=== PATIENT | male | born 1970 | race Two or more races ===

== ENCOUNTER 2023-06-01 15:58 | Outpatient (OUT) | payer OTHER, SELFPAY ==
--- NOTE | 2023-06-01 | XR_ITS ---
The [address] [address] Patient Name: SHARAN TOBIN MRN: [id number] date: 1970 Sex: M Assigned Patient Location: [facility] Current Patient Location: [facility] Accession/Order Number: [id number] Exam Date: 06/01/2023 16:00 Report Date: 06/03/2023 09:32 At the request of: ROCAEL VEGA Procedure: XR chest 2V EXAMINATION: XR chest 2V HISTORY: URI CONTINUOUS COUGH , shortness of breath COMPARISON: No relevant comparison available. FINDINGS: LUNGS: No significant pulmonary parenchymal abnormalities. VASCULATURE: No increased pulmonary vasculature. PLEURA: No pneumothorax, effusion, or pleural thickening. CARDIAC: No cardiomegaly or cardiac silhouette abnormality. MEDIASTINUM: No visible mass or adenopathy. BONES: No fracture or visible bone lesion. OTHER: Negative. XR/XR chest 2V IMPRESSION: 1. No acute cardiopulmonary process. Electronically authenticated by: REHAN العلي Date: 06/03/2023 09:32
== END 2023-06-01 15:59 | disposition home or self-care (01) ==
LOC: RAD 16:04
PROVIDERS: PCP Internal Medicine; Visit Provider Internal Medicine
DX: J06.9 Acute upper respiratory infection, unspecified (principal)
CPT/HCPCS: 71046